=== PATIENT | male | born 1945 | race Caucasian/White ===

== ENCOUNTER 2018-05-22 16:01 | Inpatient (IN) | payer OTHER, MEDICAID ==
[2018-05-22 16:39] VITALS: BMI 29.0
[2018-05-22] MEDS ORDERED: Amoxicillin-Clav 875-125 mg Tab PO SCH (18:00)
[2018-05-22] MEDS: Latanoprost 0.005% Opht SOUTION OU SCH (21:23)
[2018-05-23] MEDS ORDERED: Azithromycin 500 MG in Sodium Chloride 0.9% 250 ML IVPB SCH ×2 (09:00→21:00)
[2018-05-23] MEDS ORDERED: Enoxaparin 40 mg Syringe SC SCH (09:00)
[2018-05-23] MEDS ORDERED: Patient's Own Med (Methylprednisolone [Medrol Dose Pack (21 Tabs)] 4 MG) PO SCH (09:00)
[2018-05-23] MEDS ORDERED: Amoxicillin-Clav 875-125 mg Tab PO SCH (09:00)
[2018-05-23] MEDS: Saccharomyces Boulardi 250 mg Cap PO SCH ×2 (09:17→16:40)
--- NOTE | 2018-05-23 18:00 | CP.PCM.HP ---
Past Patient History - Past Medical History & Family History Past Medical History?: No - Past Social History Smoking Status: Never Smoked - CARDIAC Hx Cardiac Disorders: No Hx Angina: No Hx Atrial Fibrillation: No Hx Cardia Arrhythmia: No Hx Circulatory Problems: No Hx Congestive Heart Failure: No Hx Heart Attack: No Hx Heart Murmur: No Hx Heart Transplant: No Hx Hypercholesterolemia: No Hx Hypertension: No (family denies) Hx Hypotension: No Hx Internal Defibrillator: No Hx Mitral Valve Prolapse: No Hx Pacemaker: No Hx Peripheral Edema: No Hx Peripheral Vascular Disease: No - PULMONARY Hx Respiratory Disorders: No Hx Asthma: No Hx Bronchitis: No Hx Chronic Obstructive Pulmonary Disease (COPD): No Hx Emphysema: No Hx Lung Cancer: No Hx Pneumonia: No Hx Pulmonary Edema: No Hx Pulmonary Embolism: No Hx Respiratory Aspiration: No Hx Respiratory Tract Infection: No Hx Sleep Apnea: No Hx Tuberculosis: No Other/Comment: pneumonia - NEUROLOGICAL Hx Neurological Disorder: No Hx Alzheimer's Disease: No HX Cerebrovascular Accident: No Hx Dementia: No Hx Dizziness: No Hx Meningitis: No Hx Migraine: No Hx Multiple Sclerosis: No Hx Paralysis: No Hx Parkinson's Disease: No Hx Seizures: No Hx Syncope: No Hx Transient Ischemic Attacks (TIA): No Hx Vertigo: No - HEENT Hx HEENT Problems: No Hx Blind: No Hx Cataracts: No Hx Deafness: No Hx Difficulty Chewing: No Hx Epistaxis: No Hx Glaucoma: No Hx Macular Degeneration: No - RENAL Hx Chronic Kidney Disease: No Hx Dialysis: No Hx Kidney Stones: No Hx Neurogenic Bladder: No Hx Pyelonephritis: No Hx Renal (Kidney) Cancer: No Hx Renal Failure: No - ENDOCRINE/METABOLIC Hx Endocrine Disorders: No Hx Adrenal Cancer: No Hx Diabetes Insipidus: No Hx Diabetes Mellitus Type 1: No Hx Diabetes Mellitus Type 2: No Hx Hyperthyroidism: No Hx Hypothyroidism: No Hx Systemic Lupus Erythematosus: No Other/Comment: DM. DOES NOT KNOW WHICH TYPE OR ORAL MEDICATIONS - HEMATOLOGICAL/ONCOLOGICAL Hx AIDS: No Hx Human Immunodeficiency Virus (HIV): No - INTEGUMENTARY Hx Dermatological Problems: No Hx Basil Cell: No Hx Galvan: No Hx Cellulitis: No Hx Eczema: No Hx Melanoma: No Hx Psoriasis: No Hx Squamous Cell: No - MUSCULOSKELETAL/RHEUMATOLOGICAL Hx Musculoskeletal Disorders: No Hx Arthritis: Yes Hx Back Pain: No Hx Degenerative Joint Disease: No Hx Falls: No Hx Fractures: No Hx Gout: No Hx Herniated Disk: No Hx Myasthenia Gravis: No Hx Osteoarthritis: No Hx Osteomyelitis: No Hx Osteoporosis: No Hx Rhabdomyolysis: No Hx Rheumatoid Arthritis: No Hx Spinal Stenosis: No Hx Unsteady Gait: No - GASTROINTESTINAL Hx Gastrointestinal Disorders: No Hx Bowel Surgery: No Hx Clostridium Difficile: No Hx Colitis: No Hx Colostomy: No Hx Constipation: No Hx Crohn's Disease: No Hx Diarrhea: No Hx Diverticulitis: No Hx Esophageal Varices: No Hx Fatty Liver Disease: No Hx Gall Bladder Disease: No Hx Gastritis: No Hx Gastroesophageal Reflux: No Hx Hemorrhoids: No Hx Ileostomy: No Hx Irritable Bowel: No Hx Liver Failure: No Hx Nausea: No Hx Pancreatitis: No HX Swallowing Problems: No Hx Ulcer: No Hx Vomiting: No - GENITOURINARY/GYNECOLOGICAL Hx Genitourinary Disorders: No Hx Bladder Cancer: No Hx Bladder Stone: No Hx Hematuria: No Hx Incontinence: No Hx Prostate Cancer: No Hx Prostate Problems: No Hx Reproductive Disorders: No Hx Sexually Transmitted Disorders: No Hx Urinary Tract Infection: No - PSYCHIATRIC Hx Psychophysiologic Disorder: No Hx Anxiety: No Hx Bipolar Disorder: No Hx Depression: No Hx Emotional Abuse: No Hx Hallucinations: No Hx Panic Symptoms: No Hx Paranoia: No Hx Post Traumatic Stress Disorder: No Hx Psychosis: No Hx Physical Abuse: No Hx Schizophrenia: No Hx Sexual Abuse: No Hx Substance Use: No - SURGICAL HISTORY Hx Surgeries: No - ANESTHESIA Hx Anesthesia: No Meds Allergies/Adverse Reactions: Allergies Allergy/AdvReac Type Severity Reaction Status Date / Time No Known Allergies Allergy Verified 05/22/18 16:39 Results - Vital Signs Recent Vital Signs: Last Vital Signs Temp 97.5 F L 05/23/18 15:40 Pulse 83 05/23/18 15:51 Resp 20 05/23/18 15:40 BP 117/72 05/23/18 15:51 Pulse Ox 92 L 05/23/18 15:51 - Labs Labs: Laboratory Results - last 24 hr 05/22/18 05/23/18 22:42 05:53 POC Glucose (mg/dL) 240 H 157 H Assessment & Plan (1) Pneumonia Status: Acute (2) Lung fibrosis Status: Acute (3) Cirrhosis of liver Status: Acute (4) Thrombocytopenia Status: Acute (5) SOB (shortness of breath) Status: Acute
[2018-05-23] MEDS: Latanoprost 0.005% Opht SOUTION OU SCH (21:40)
[2018-05-23] MEDS: Promethazine/Cod 6.25mg-10mg/5ml Syr UD PO PRN (23:01)
[2018-05-23] MEDS: Albuterol-Ipratrop 3 mg / 0.5 (3 ml) UD INH PRN (23:14)
[2018-05-24] MEDS ORDERED: methylPREDNISolone 40 MG in Sodium Chloride 0.9% 50 ML IV SCH (01:00)
[2018-05-24] MEDS ORDERED: MethylPREDNISolone 40 mg Vial IVP SCH (01:00)
[2018-05-24] MEDS: Promethazine/Cod 6.25mg-10mg/5ml Syr UD PO PRN ×3 (04:31→21:40)
[2018-05-24] MEDS ORDERED: cefTRIAXone (Rocephin) 1 gm Inj IM SCH (09:00)
[2018-05-24] MEDS: Saccharomyces Boulardi 250 mg Cap PO SCH ×2 (09:12→18:04)
[2018-05-24] MEDS: Albuterol-Ipratrop 3 mg / 0.5 (3 ml) UD INH PRN ×3 (10:58→19:49)
[2018-05-24] MEDS: Latanoprost 0.005% Opht SOUTION OU SCH (21:36)
--- NOTE | 2018-05-24 22:14 | CP.PCM.PN ---
Subjective - Date & Time of Evaluation Date of Evaluation: 05/24/18 Time of Evaluation: 17:05 Objective - Vital Signs/Intake and Output Vital Signs (last 24 hours): Temp Pulse Resp BP Pulse Ox 98.1 F 107 H 20 117/71 93 L 05/24/18 19:54 05/24/18 19:54 05/24/18 19:54 05/24/18 19:54 05/24/18 19:54 - Medications Medications: Current Medications Albuterol/Ipratropium (Duoneb 3 Mg/0.5 Mg (3 Ml) Ud) 3 ml INH RQ6 PRN PRN Reason: Shortness of Breath Last Admin: 05/24/18 19:49 Dose: 3 ml Azithromycin (Zithromax) 500 mg PO DAILY [facility]; Protocol Last Admin: 05/24/18 09:13 Dose: 500 mg Benzonatate (Tessalon Perles) 100 mg PO DAILY [facility] Last Admin: 05/24/18 09:12 Dose: 100 mg Cephalexin Monohydrate (Keflex) 500 mg PO Q6 [facility]; Protocol Last Admin: 05/24/18 21:37 Dose: 500 mg Enoxaparin Sodium (Lovenox) 40 mg SC DAILY [facility]; Protocol Famotidine (Pepcid) 20 mg PO Q12 [facility] Last Admin: 05/24/18 21:36 Dose: 20 mg Ibuprofen (Motrin Tab) 600 mg PO TID PRN PRN Reason: Pain, moderate (4-7) Last Admin: 05/22/18 21:23 Dose: 600 mg Latanoprost (Xalatan Opht) 1 drop OU HS [facility] Last Admin: 05/24/18 21:36 Dose: 1 drop Prednisone (Prednisone Tab) 40 mg PO Q24H [facility] Last Admin: 05/24/18 21:37 Dose: 40 mg Promethazine HCl/Codeine (Phenergan/Codeine Oral Syrup) 5 ml PO Q6 PRN PRN Reason: Cough Last Admin: 05/24/18 21:40 Dose: 5 ml Saccharomyces Boulardii (Florastor) 250 mg PO BID [facility] Last Admin: 05/24/18 18:04 Dose: Not Given
[2018-05-25] MEDS: Albuterol-Ipratrop 3 mg / 0.5 (3 ml) UD INH PRN ×2 (00:56→11:01)
[2018-05-25] MEDS: Promethazine/Cod 6.25mg-10mg/5ml Syr UD PO PRN ×2 (06:08→22:11)
[2018-05-25] MEDS: Saccharomyces Boulardi 250 mg Cap PO SCH ×2 (08:10→16:21)
[2018-05-25 15:42] LABS: HEMOGLOBIN 14.5 g/dL (12.0-18.0); MEAN CELL VOLUME 98.4 fl (80.0-94.0); MEAN CORPUSCULAR HEMOGLOBIN 31.7 pg (27.0-31.0); MEAN CORPUSCULAR HGB CONC 32.2 g/dL (33.0-37.0); RBC 4.57 Mil/uL (4.40-5.90); RED CELL DISTRIBUTION WIDTH 15.2 % (11.5-14.5); WHITE BLOOD COUNT 6.1 K/uL (4.8-10.8)
[2018-05-25 15:52] LABS: ALB/GLOB RATIO 0.7 (1.0-2.1); ALBUMIN 2.8 g/dL (3.5-5.0); ALT/SGPT 61 U/L (21-72); AST/SGOT 44 U/L (17-59); BLOOD UREA NITROGEN 20 mg/dl (9-20); CALCIUM 8.5 mg/dL (8.4-10.2); GFR NON-AFRICAN AMERICAN > 60
[2018-05-25] MEDS: Latanoprost 0.005% Opht SOUTION OU SCH (21:54)
[2018-05-26] MEDS: Albuterol-Ipratrop 3 mg / 0.5 (3 ml) UD INH PRN ×2 (00:24→11:16)
[2018-05-26] MEDS: Promethazine/Cod 6.25mg-10mg/5ml Syr UD PO PRN ×2 (04:25→21:52)
[2018-05-26] MEDS: Saccharomyces Boulardi 250 mg Cap PO SCH ×2 (09:55→17:00)
[2018-05-26 10:57] LABS: CERULOPLASMIN 23 mg/dL (18-36)
[2018-05-26 13:29] LABS: SOURCE URINE
[2018-05-26] MEDS: Albuterol-Ipratrop 3 mg / 0.5 (3 ml) UD INH SCH ×2 (15:39→19:18)
[2018-05-26] MEDS: Insulin Regular 100 units/ml SC SCH ×2 (17:07→23:55)
[2018-05-26] MEDS: Latanoprost 0.005% Opht SOUTION OU SCH (21:45)
[2018-05-27] MEDS: Albuterol-Ipratrop 3 mg / 0.5 (3 ml) UD INH SCH ×5 (01:05→19:16)
[2018-05-27] MEDS: Promethazine/Cod 6.25mg-10mg/5ml Syr UD PO PRN ×2 (05:56→14:03)
[2018-05-27] MEDS: Insulin Regular 100 units/ml SC SCH ×4 (08:15→22:03)
[2018-05-27] MEDS: Saccharomyces Boulardi 250 mg Cap PO SCH ×2 (09:54→18:14)
[2018-05-27 16:33] VITALS: RESP 20
[2018-05-27] MEDS: Latanoprost 0.005% Opht SOUTION OU SCH (22:02)
[2018-05-28] MEDS: Albuterol-Ipratrop 3 mg / 0.5 (3 ml) UD INH SCH ×6 (00:12→23:42)
[2018-05-28] MEDS: Promethazine/Cod 6.25mg-10mg/5ml Syr UD PO PRN ×2 (01:18→12:00)
--- NOTE | 2018-05-28 05:10 | CP.PCM.PN ---
Subjective - Date & Time of Evaluation Date of Evaluation: 05/25/18 Objective - Vital Signs/Intake and Output Vital Signs (last 24 hours): Temp Pulse Resp BP Pulse Ox 97.3 F L 107 H 20 109/65 98 05/27/18 21:42 05/27/18 21:42 05/27/18 21:42 05/27/18 21:42 05/27/18 21:42 - Medications Medications: Current Medications Albuterol/Ipratropium (Duoneb 3 Mg/0.5 Mg (3 Ml) Ud) 3 ml INH RQ6 [facility] Last Admin: 05/28/18 00:12 Dose: 3 ml Azithromycin (Zithromax) 500 mg PO DAILY [facility]; Protocol Last Admin: 05/27/18 09:55 Dose: 500 mg Benzonatate (Tessalon Perles) 100 mg PO Q8 [facility] Last Admin: 05/28/18 00:05 Dose: 100 mg Cephalexin Monohydrate (Keflex) 500 mg PO Q6 [facility]; Protocol Last Admin: 05/27/18 22:02 Dose: 500 mg Enoxaparin Sodium (Lovenox) 40 mg SC DAILY [facility]; Protocol Famotidine (Pepcid) 20 mg PO Q12 [facility] Last Admin: 05/27/18 22:02 Dose: 20 mg Ibuprofen (Motrin Tab) 600 mg PO TID PRN PRN Reason: Pain, moderate (4-7) Last Admin: 05/22/18 21:23 Dose: 600 mg Insulin Human Regular (Humulin R) 0 units SC ACHS [facility]; Protocol Last Admin: 05/27/18 22:03 Dose: Not Given Latanoprost (Xalatan Opht) 1 drop OU HS [facility] Last Admin: 05/27/18 22:02 Dose: 1 drop Prednisone (Prednisone Tab) 30 mg PO DAILY [facility] Stop: 05/28/18 09:01 Last Admin: 05/27/18 18:13 Dose: 30 mg Prednisone (Prednisone Tab) 20 mg PO DAILY [facility] Stop: 05/30/18 09:01 Prednisone (Prednisone Tab) 15 mg PO DAILY [facility] Stop: 06/01/18 09:01 Prednisone (Prednisone Tab) 10 mg PO DAILY [facility] Promethazine HCl/Codeine (Phenergan/Codeine Oral Syrup) 10 ml PO Q6 PRN PRN Reason: Cough Last Admin: 05/28/18 01:18 Dose: 10 ml Saccharomyces Boulardii (Florastor) 250 mg PO BID [facility] Last Admin: 05/27/18 18:14 Dose: Not Given - Labs Labs: 05/25/18 15:25 05/25/18 15:25 Assessment and Plan (1) Pneumonia Status: Acute (2) Lung fibrosis Status: Acute (3) Cirrhosis of liver Status: Acute (4) Thrombocytopenia Status: Acute (5) SOB (shortness of breath) Status: Acute
--- NOTE | 2018-05-28 05:11 | CP.PCM.PN ---
Subjective - Date & Time of Evaluation Date of Evaluation: 05/27/18 Objective - Vital Signs/Intake and Output Vital Signs (last 24 hours): Temp Pulse Resp BP Pulse Ox 97.3 F L 107 H 20 109/65 98 05/27/18 21:42 05/27/18 21:42 05/27/18 21:42 05/27/18 21:42 05/27/18 21:42 - Medications Medications: Current Medications Albuterol/Ipratropium (Duoneb 3 Mg/0.5 Mg (3 Ml) Ud) 3 ml INH RQ6 [facility] Last Admin: 05/28/18 00:12 Dose: 3 ml Azithromycin (Zithromax) 500 mg PO DAILY [facility]; Protocol Last Admin: 05/27/18 09:55 Dose: 500 mg Benzonatate (Tessalon Perles) 100 mg PO Q8 [facility] Last Admin: 05/28/18 00:05 Dose: 100 mg Cephalexin Monohydrate (Keflex) 500 mg PO Q6 [facility]; Protocol Last Admin: 05/27/18 22:02 Dose: 500 mg Enoxaparin Sodium (Lovenox) 40 mg SC DAILY [facility]; Protocol Famotidine (Pepcid) 20 mg PO Q12 [facility] Last Admin: 05/27/18 22:02 Dose: 20 mg Ibuprofen (Motrin Tab) 600 mg PO TID PRN PRN Reason: Pain, moderate (4-7) Last Admin: 05/22/18 21:23 Dose: 600 mg Insulin Human Regular (Humulin R) 0 units SC ACHS [facility]; Protocol Last Admin: 05/27/18 22:03 Dose: Not Given Latanoprost (Xalatan Opht) 1 drop OU HS [facility] Last Admin: 05/27/18 22:02 Dose: 1 drop Prednisone (Prednisone Tab) 30 mg PO DAILY [facility] Stop: 05/28/18 09:01 Last Admin: 05/27/18 18:13 Dose: 30 mg Prednisone (Prednisone Tab) 20 mg PO DAILY [facility] Stop: 05/30/18 09:01 Prednisone (Prednisone Tab) 15 mg PO DAILY [facility] Stop: 06/01/18 09:01 Prednisone (Prednisone Tab) 10 mg PO DAILY [facility] Promethazine HCl/Codeine (Phenergan/Codeine Oral Syrup) 10 ml PO Q6 PRN PRN Reason: Cough Last Admin: 05/28/18 01:18 Dose: 10 ml Saccharomyces Boulardii (Florastor) 250 mg PO BID [facility] Last Admin: 05/27/18 18:14 Dose: Not Given - Labs Labs: 05/25/18 15:25 05/25/18 15:25 Assessment and Plan (1) Pneumonia Status: Acute (2) Lung fibrosis Status: Acute (3) Cirrhosis of liver Status: Acute (4) Thrombocytopenia Status: Acute (5) SOB (shortness of breath) Status: Acute
[2018-05-28] MEDS: Insulin Regular 100 units/ml SC SCH ×4 (06:47→22:36)
[2018-05-28] MEDS: Saccharomyces Boulardi 250 mg Cap PO SCH ×2 (08:23→16:53)
--- NOTE | 2018-05-28 15:53 | RAD ---
Date of service: 05/28/2018 HISTORY: COMPARISON: No prior. TECHNIQUE: Chest PA and lateral FINDINGS: LUNGS: Patchy infiltrate changes seen in the left mid to lower lung field with what probably represents a small left-sided effusion. Mild atelectasis and/or scarring changes seen in the right mid to lower lung field.. Coarsened and increased interstitial markings; rule out underlying chronic changes of COPD.. PLEURA: As above. No pneumothorax apparent. CARDIOVASCULAR: No significant aortic atherosclerotic calcification present. Heart size difficult to assess due to silhouetting left cardiac border OSSEOUS STRUCTURES: Mild multilevel degenerative spondylosis of the thoracic spine VISUALIZED UPPER ABDOMEN: Normal. OTHER FINDINGS: None. IMPRESSION: Patchy infiltrate changes seen in the left mid to lower lung field with what probably represents a small left-sided effusion. Mild atelectasis and/or scarring changes seen in the right mid to lower lung field.. Coarsened and increased interstitial markings; rule out underlying chronic changes of COPD..
[2018-05-28 18:22] LABS: SCHISTOSOMA AB <1.00
[2018-05-28] MEDS: Latanoprost 0.005% Opht SOUTION OU SCH (22:38)
[2018-05-29] MEDS: Albuterol-Ipratrop 3 mg / 0.5 (3 ml) UD INH SCH ×4 (01:10→19:33)
[2018-05-29] MEDS: Promethazine/Cod 6.25mg-10mg/5ml Syr UD PO PRN (03:23)
[2018-05-29] MEDS: Insulin Regular 100 units/ml SC SCH ×4 (06:32→22:09)
[2018-05-29] MEDS: Saccharomyces Boulardi 250 mg Cap PO SCH ×2 (09:15→17:26)
--- NOTE | 2018-05-29 12:21 | CP.PCM.PN ---
Subjective - Date & Time of Evaluation Date of Evaluation: 05/28/18 Time of Evaluation: 16:55 - Subjective Subjective: Seen and examined at the bedside. Patient continued to cough (non-Productive), dyspnea even at rest which gets aggravated with exertion and wheezing. Patient desaturates to 87% at rest with no oxygen. Oxygenation improves between 92-94% on 2 L of oxygen via nasal Cannula. Patient completed treatment for pneumonia, and does not show signs of acute infection. Repeat chest x-ray showed continued chronic lung disease, possible pulmonary fibrosis (as per the Mold Inspector Dr. Emerson Shaffer, and from reviewing CT scan from [facility]). I recommend home oxygen to be arranged for the patient as a discharge planning. Objective - Vital Signs/Intake and Output Vital Signs (last 24 hours): Temp Pulse Resp BP Pulse Ox 98.1 F 91 H 20 129/75 99 05/29/18 09:02 05/29/18 09:02 05/29/18 09:02 05/29/18 09:02 05/29/18 09:02 - Medications Medications: Current Medications Albuterol/Ipratropium (Duoneb 3 Mg/0.5 Mg (3 Ml) Ud) 3 ml INH RQ6 [facility] Last Admin: 05/29/18 07:10 Dose: 3 ml Benzonatate (Tessalon Perles) 100 mg PO Q8 [facility] Last Admin: 05/29/18 09:15 Dose: 100 mg Enoxaparin Sodium (Lovenox) 40 mg SC DAILY [facility]; Protocol Famotidine (Pepcid) 20 mg PO Q12 [facility] Last Admin: 05/29/18 09:15 Dose: 20 mg Ibuprofen (Motrin Tab) 600 mg PO TID PRN PRN Reason: Pain, moderate (4-7) Last Admin: 05/22/18 21:23 Dose: 600 mg Insulin Human Regular (Humulin R) 0 units SC ACHS [facility]; Protocol Last Admin: 05/29/18 06:32 Dose: Not Given Latanoprost (Xalatan Opht) 1 drop OU HS [facility] Last Admin: 05/28/18 22:38 Dose: 1 drop Prednisone (Prednisone Tab) 20 mg PO DAILY [facility] Stop: 05/30/18 09:01 Last Admin: 05/29/18 09:15 Dose: 20 mg Prednisone (Prednisone Tab) 15 mg PO DAILY [facility] Stop: 06/01/18 09:01 Prednisone (Prednisone Tab) 10 mg PO DAILY [facility] Promethazine HCl/Codeine (Phenergan/Codeine Oral Syrup) 10 ml PO Q6 PRN PRN Reason: Cough Last Admin: 05/29/18 03:23 Dose: 10 ml Saccharomyces Boulardii (Florastor) 250 mg PO BID [facility] Last Admin: 05/29/18 09:15 Dose: 250 mg - Labs Labs: 05/25/18 15:25 05/25/18 15:25 - Constitutional Appears: No Acute Distress - Head Exam Head Exam: ATRAUMATIC, NORMAL INSPECTION, NORMOCEPHALIC - Eye Exam Eye Exam: EOMI, Normal appearance, PERRL Pupil Exam: NORMAL ACCOMODATION, PERRL - ENT Exam ENT Exam: Mucous Membranes Moist, Normal Exam - Neck Exam Neck Exam: Full ROM, Normal Inspection. absent: Lymphadenopathy - Respiratory Exam Respiratory Exam: Decreased Breath Sounds, Prolonged Expiratory Phase, Rhonchi, Wheezes - Cardiovascular Exam Cardiovascular Exam: REGULAR RHYTHM, +S1, +S2. absent: Murmur - GI/Abdominal Exam GI & Abdominal Exam: Soft, Normal Bowel Sounds. absent: Tenderness - Extremities Exam Extremities Exam: Full ROM, Normal Capillary Refill, Normal Inspection. absent: Joint Swelling, Pedal Edema - Back Exam Back Exam: NORMAL INSPECTION - Neurological Exam Neurological Exam: Alert, Awake, CN II-XII Intact, Normal Gait, Oriented x3 - Psychiatric Exam Psychiatric exam: Normal Affect, Normal Mood - Skin Skin Exam: Dry, Intact, Normal Color, Warm Assessment and Plan (1) SOB (shortness of breath) Status: Chronic (2) Pulmonary fibrosis Status: Acute (3) Pneumonia Status: Resolved (4) Cirrhosis of liver Status: Chronic (5) Thrombocytopenia Status: Chronic - Assessment and Plan (Free Text) Plan: Continue 2 L oxygen via nasal cannula Prednisone 30 mg p.o. daily for 2 days and taper to maintenance 10 mg p.o. daily DuoNeb every 4 hours [id number] Promethazine with Codeine 5 cc every 6 hours Patient will need a walker with a seat
[2018-05-29 19:36] VITALS: O2SAT 97
[2018-05-29] MEDS: Latanoprost 0.005% Opht SOUTION OU SCH (22:16)
[2018-05-30] MEDS: Albuterol-Ipratrop 3 mg / 0.5 (3 ml) UD INH SCH ×2 (00:59→07:59)
[2018-05-30] MEDS: Promethazine/Cod 6.25mg-10mg/5ml Syr UD PO PRN (04:01)
[2018-05-30] MEDS: Insulin Regular 100 units/ml SC SCH (06:41)
[2018-05-30 08:06] VITALS: BP 110/68; PULSE 92; TEMP 97.4
[2018-05-30] MEDS: Saccharomyces Boulardi 250 mg Cap PO SCH (08:32)
--- NOTE | 2018-05-31 00:02 | CP.PCM.DIS ---
Provider - Provider Date of Admission: 05/22/18 17:04 Attending physician: Alejandra Hoskins MD Consults: 05/22/18 17:57 Case Management Referral Routine Comment: Physician Instructions: Reason For Exam: Reason for Referral: Discharge Planning Time Spent in preparation of Discharge (in minutes): 25 Diagnosis - Discharge Diagnosis (1) SOB (shortness of breath) Status: Chronic (2) Pulmonary fibrosis Status: Acute (3) Pneumonia Status: Resolved (4) Cirrhosis of liver Status: Chronic (5) Thrombocytopenia Status: Chronic Hospital Course - Lab Results Lab Results: Most Recent Lab Values WBC 6.1 K/uL (4.8-10.8) 05/25/18 15:25 RBC 4.57 Mil/uL (4.40-5.90) 05/25/18 15:25 Hgb 14.5 g/dL (12.0-18.0) 05/25/18 15:25 Hct 45.0 % (35.0-51.0) 05/25/18 15:25 MCV 98.4 fl (80.0-94.0) H 05/25/18 15:25 MCH 31.7 pg (27.0-31.0) H 05/25/18 15:25 MCHC 32.2 g/dL (33.0-37.0) L 05/25/18 15:25 RDW 15.2 % (11.5-14.5) H 05/25/18 15:25 Plt Count 62 K/uL (130-400) L 05/25/18 15:25 Sodium 136 mmol/l (132-148) 05/25/18 15:25 Potassium 4.5 MMOL/L (3.6-5.0) 05/25/18 15:25 Chloride 97 mmol/L (98-107) L 05/25/18 15:25 Carbon Dioxide 29 mmol/L (22-30) 05/25/18 15:25 Anion Gap 15 (10-20) 05/25/18 15:25 BUN 20 mg/dl (9-20) 05/25/18 15:25 Creatinine 0.8 mg/dl (0.8-1.5) 05/25/18 15:25 Est GFR ( Amer) > 60 05/25/18 15:25 Est GFR (Non-Af Amer) > 60 05/25/18 15:25 POC Glucose (mg/dL) 195 mg/dL (65-110) H 05/30/18 05:14 Random Glucose 199 mg/dL (75-110) H 05/25/18 15:25 Calcium 8.5 mg/dL (8.4-10.2) 05/25/18 15:25 Phosphorus 3.7 mg/dl (2.5-4.5) 05/25/18 15:25 Magnesium 2.1 MG/DL (1.6-2.3) 05/25/18 15:25 Ferritin 132.0 ng/Ml (17.9-464) 05/25/18 15:25 Total Bilirubin 0.8 mg/dl (0.2-1.3) 05/25/18 15:25 AST 44 U/L (17-59) 05/25/18 15:25 ALT 61 U/L (21-72) 05/25/18 15:25 Alkaline Phosphatase 117 U/L (38-126) 05/25/18 15:25 Total Protein 6.9 G/DL (6.3-8.2) 05/25/18 15:25 Albumin 2.8 g/dL (3.5-5.0) L 05/25/18 15:25 Globulin 4.1 gm/dL (2.2-3.9) H 05/25/18 15:25 Albumin/Globulin Ratio 0.7 (1.0-2.1) L 05/25/18 15:25 Ceruloplasmin 23 mg/dL (18-36) 05/25/18 15:25 Stool Source Urine 05/24/18 07:00 Copper 71 mcg/dL (70-175) 05/25/18 15:25 Anti-Mitochondrial Ab Negative (Negative) 05/25/18 15:25 Dengue Fever IgG Ab 1.80 H 05/25/18 15:25 Dengue Fever IgM Ab 1.02 05/25/18 15:25 Schistosoma Detection <1.00 05/25/18 15:25 Discharge Exam - Head Exam Head Exam: ATRAUMATIC, NORMAL INSPECTION, NORMOCEPHALIC Discharge Plan - Follow Up Plan Condition: GOOD Disposition: HOME/ ROUTINE Instructions: Oxygen Therapy, Adult, Pneumonia, Adult (DC), Oxygen Therapy, Adult (DC), Preventing Falls Referrals: Alejandra Hoskins MD [Staff Provider] -
== END 2018-05-30 10:30 | DRG 196 ==
LOC: H.TCU 17:04
PROVIDERS: ADMIT Internal Medicine; ATTEND Internal Medicine
PROC: 3E0F7GC Introduction of Other Therapeutic Substance into Respiratory Tract, Via Natural or Artificial Opening (ICD-10-PCS; principal; 2018-05-25)
DX: J84.10 Pulmonary fibrosis, unspecified (principal); J18.9 Pneumonia, unspecified organism; K74.60 Unspecified cirrhosis of liver; M19.90 Unspecified osteoarthritis, unspecified site; D69.6 Thrombocytopenia, unspecified; E11.9 Type 2 diabetes mellitus without complications